=== PATIENT | female | born 1970 | race Hispanic/Latino ===

== ENCOUNTER 2018-02-12 10:44 | Emergency (ER) | payer BC, OTHER ==
[2018-02-12 11:08] LABS: APPEARANCE,URINE Turbid (CLEAR); BILIRUBIN,URINE Negative (NEGATIVE); COLOR,URINE Dark Yellow (YELLOW); GLUCOSE, URINE (UA) TRACE mg/dL (NEGATIVE); KETONES,URINE Trace mg/dL (NEGATIVE); LEUKOCYTE ESTERASE ,URINE Trace (NEGATIVE); NITRATE,URINE Negative (NEGATIVE); OCCULT BLOOD,URINE Small (NEGATIVE); PROTEIN,URINE >=1000 (NEGATIVE)
[2018-02-12 11:11] LABS: BASOPHILS % (AUTO) 0.6 % (0.0-5.0); EOSINOPHILS % (AUTO) 0.7 % (0.0-8.0); LYMPHOCYTES % (AUTO) 22.6 % (21.0-51.0); MEAN CORPUSCULAR HEMOGLOBIN 27.8 pg (27.0-33.0); MEAN CORPUSCULAR VOLUME 81.8 fL (79-99); MONOCYTES % (AUTO) 5.2 % (3.0-13.0); NEUTROPHILS % (AUTO) 70.9 % (40.0-77.0); PLATELET COUNT (AUTO) 459 K/uL (130-400); RED BLOOD CELL COUNT(AUTO) 4.65 MIL/uL (4.00-5.50); RED CELL DISTRIBUTION WIDTH 13.2 % (11.0-15.5); WHITE BLOOD COUNT (AUTO) 12.7 K/uL (4.8-10.8)
[2018-02-12 11:16] LABS: HCG,QUAL RESULT NEGATIVE (NEGATIVE)
[2018-02-12 11:21] LABS: POTASSIUM 3.9 mmol/L (3.5-5.1)
[2018-02-12] MEDS ORDERED: MORPHINE SULFATE 4 MG/1ML SYG ONE (11:21)
[2018-02-12] MEDS ORDERED: ONDANSETRON HCL 4 MG/2 ML VIAL ONE (11:21)
[2018-02-12 11:27] LABS: ALBUMIN 2.9 g/dL (3.5-5.0); BILIRUBIN,TOTAL 0.5 mg/dL (0.2-1.0); TOTAL PROTEIN, SERUM 7.7 g/dL (6.0-8.3)
[2018-02-12 11:27] LABS: BACTERIA,URINE Many /HPF (None Seen); HYALINE CASTS, URINE 0-1 /LPF (0-1 /LPF); SQUAMOUS EPITHELIAL CELL,UR Few /HPF (0-2)
[2018-02-12 12:00] LABS: CREATINE KINASE, TOTAL 34 U/L (21-232); LIPASE 138 U/L (114-286)
[2018-02-12] MEDS ORDERED: CEFTRIAXONE SODIUM 1 GM ONE (13:46)
[2018-02-12] MEDS ORDERED: SODIUM CHLORIDE 0.9% 50 ML IV ONE (13:47)
[2018-02-12] MEDS ORDERED: KETOROLAC TROMETHAMINE 30MG/ML ONE (13:52)
== END 2018-02-12 14:27 | disposition home or self-care (01) ==
LOC: EDH 10:44
DX: N39.0 Urinary tract infection, site not specified (principal); I10 Essential (primary) hypertension; Z79.4 Long term (current) use of insulin
CPT/HCPCS: 36415; 74176; 80053; 81001; 81025; 82550; 83690; 84484; 85025; 87088; 87186; 93005; 96374; 96375; 99285; J0696; J1885; J2270; J2405

== ENCOUNTER → 2022-06-03 | Outpatient (CLI) | payer BC | END | disposition home or self-care (01) | LOC: SHCH 10:02 | PROVIDERS: ATTEND Internal Medicine Cardiovascular Disease | DX: I87.2 Venous insufficiency (chronic) (peripheral) (principal) | CPT/HCPCS: 93925; 93970 ==